=== PATIENT | male | born 1960 | race Caucasian/White ===

== ENCOUNTER 2017-02-20 01:59 | Inpatient (IN) | payer MEDICAID ==
[2017-02-20] MEDS ORDERED: NS 1,000 ML IV ONE (02:00)
[2017-02-20] MEDS ORDERED: SUCCINYLCHOLINE CHLORIDE 200 MG/10 ML VIAL IVP ONE ×2 (02:05→20:10)
[2017-02-20] MEDS ORDERED: ETOMIDATE 20 MG/10 ML VIAL IVP ONE (02:05)
[2017-02-20] MEDS ORDERED: ETOMIDATE 40 MG/20 ML INJ IVP ONE (02:10)
[2017-02-20 02:14] LABS: % IMMATURE GRANULYOCYTES 0.7 % (0.0-1.1); ABSOLUTE IMMATURE GRANULOCYTES 0.06 10^3/uL (0.00-0.10); ADD DIFF? NO; ADD MORPH? NO; ADD SCAN? NO; ATYPICAL LYMPHOCYTE FLAG 30 (0-99); FRAGMENT RBC FLAG 0 (0-99); HEMATOCRIT 49.7 % (40.0-51.0); HEMOGLOBIN 17.5 g/dL (13.7-17.5); LEFT SHIFT FLG 0 (0-99); LIPEMIA HEMOLYSIS FLAG 90 (0-99); MEAN CELL HEMOGLOBIN CONCENTR. 35.2 g/dL (32.4-36.7); MEAN CELL VOLUME 93.6 fL (81.5-99.8); MEAN PLATELET VOLUME 10.5 fL (8.7-11.7); PLATELET CLUMPS FLAG 10 (0-99); PLATELET COUNT 259 10^3/uL (150-400); RED BLOOD CELL COUNT 5.31 10^6/uL (4.40-6.38); RED CELL DISTRIBUTION WIDTH 12.7 % (11.5-15.2)
[2017-02-20] MEDS ORDERED: AMPICILLIN/SULBACTAM 3 GM in NS 100 ML IV ONE (02:17)
[2017-02-20 02:28] LABS: CARBON DIOXIDE 18 mEq/l (22-31); CHLORIDE 106 mEq/L (97-110); ETHANOL SERUM 272 mg/dL (0-10); GLOMERULAR FILTRATION RATE > 60; POTASSIUM 3.9 mEq/L (3.5-5.2)
--- NOTE | 2017-02-20 02:30 | EDPHY ---
H & P HPI/ROS: HPI: The patient presents brought in by ambulance as full trauma activation. He was at the [facility], mental health section because he was feeling suicidal. 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 He went to his car and was wrestling around for a weapon apparently. He refused to be cooperative with the police were on scene. He was taste with a Taser gun 1 time. He then vomited and fell to the ground. His head hit the ground. He had decreased responsiveness and diminished respiratory rate. In the ambulance, he was bagged and had a GCS of 4. REVIEW OF SYSTEMS Unable to obtain given patient's clinical condition PMHx: Prior ER visit in December for suicidal ideation, history of depression, hypertension, stroke, COPD TRAUMA PHYSICAL General Appearance: Obtunded, eyes closed, being bagged Head: Contusion with skin tear about 2 cm overlying mid forehead, posterior scalp laceration about 8 cm Eyes: Pupils equal, round, reactive ENT, Mouth: No hemotypanium, no oral trauma Neck: C-collar in place trachea midline Respiratory: No chest wall tenderness, no subcutaneous air, lungs clear bilaterallty Cardiovascular: Regular rate and rhythm Abdomen: Abdomen is soft and non-tender, pelvis stable Skin: As above Back: Atraumatic Extremities: No obvious external signs of trauma Neurological: GCS-7 Source: EMS, Old records Exam Limitations: Clinical condition, Physical impairment Allergies/Adverse Reactions: Unable to Assess Allergy (Verified 02/20/17 03:14) Home Medications: Medication Instructions Recorded Unobtainable 02/20/17 Medical Decision Making - Diagnostics Imaging Results: Chest x-ray one view shows ET tube 2 cm above the charissa, OG tube in stomach CT head noncontrast shows no acute intracranial injuries, discussed with Dr. Luque. CT C-spine noncontrast shows no acute fracture, discussed with Dr. Luque. CT chest abdomen pelvis performed with IV contrast shows no acute injury, discussed with Dr. Luque. Imaging: Discussed imaging studies w/ bingo caller Radiologist Procedures: INTUBATION Procedure: Rapid sequence intubation. Indication for the procedure was head trauma, airway protection. The patient was preoxygenated with 100% oxygen by face mask and then nasal cannula at 15 L. The patient was given the following IV medications: Etomidate, succinylcholine. The patient was orally endotracheally intubated under direct visualization with a 8.0 ETT. Initial attempt failed with glide scope because of copious vomiting requiring suction. In line stabilization was performed during the procedure. Tracheal intubation was confirmed with misting on the tube; breath sounds were auscultated equally bilaterally; appropriate color change with [place] Tidal CO2 detector. Chest X-ray shows ETT in good position. The procedure was performed by myself. FAST ULTRASOUND Procedure: FAST Trauma ultrasound. Limited transthoracic ultrasound was performed and interpreted by myself for the indication of: chest trauma utilizing the thoracoabdominal emergency ultrasound protocol. The pericardium was visualized and found to be negative for pericardial fluid. Limited abdominal ultrasound for blunt abdominal trauma. 1) The right upper quadrant was visualized and was found to be negative for intraperitoneal fluid. 2) The left upper quadrant was visualized and found to be negative for intraperitoneal fluid. Limited pelvic ultrasound was conducted for abdominal trauma. The bladder was visualized and did not reveal an anechoic area outside of the adjacent urinary bladder. Bladder was distended with urine. The study was felt to be negative for free intraperitoneal fluid LACERATION REPAIR Procedure: Laceration repair. Verbal consent was obtained from the patient. The linear somewhat macerated 3 cm laceration on the posterior scalp was anesthetized using lidocaine. The wound was scrubbed, draped and explored to its base with a gloved finger. There were no deep structures involved. . The wound was repaired with jovany. The wound repair was simple. The procedure was performed by myself. Differential Diagnosis: This is a 56-year-old man with history of depression, COPD, hypertension, stroke who is brought in by ambulance as full trauma activation. I met the paramedics at the bedside to obtain their report with the trauma surgeon, Dr. Rodriguez. The patient is actively vomiting, is obtained ended with low GCS and not protecting his airway, thus decision was made to intubate. He continued to vomit during intubation, he was sectioned, however sats dropped transiently to the 80s and then tube was placed without difficulty. OG tube was placed for his vomiting. [place] was placed. CT scan was obtained and demonstrated no serious acute injuries. He does appear to have possible aspiration pneumonia on CT of his chest. He has received antibiotics already for this. Labs were checked and did reveal an elevated alcohol level otherwise unremarkable. I repaired his scalp laceration. I have placed him on an M1 hold for suicidal ideation. He will be admitted to the ICU. Critical Care Time: CRITICAL CARE Critical care time spent by me, Dr Luu, exclusively with this patient was 45 minutes, exclusive of PA time and exclusive of procedures. The organ system at risk was neuro and I gave IV fluids, intubated the patient, emergently transferred to the ICU to prevent worsening of the patients condition. - Data Points Laboratory Results: Laboratory Results 02/20/17 02:08 02/20/17 02:08 02/20/17 02/20/17 02/20/17 02:08 02:08 02:08 WBC 9.19 10^3/uL 10^3/uL (3.80-9.50) RBC 5.31 10^6/uL 10^6/uL (4.40-6.38) Hgb 17.5 g/dL g/dL (13.7-17.5) Hct 49.7 % % (40.0-51.0) MCV 93.6 fL fL (81.5-99.8) MCH 33.0 pg pg (27.9-34.1) MCHC 35.2 g/dL g/dL (32.4-36.7) RDW 12.7 % % (11.5-15.2) Plt Count 259 10^3/uL 10^3/uL (150-400) MPV 10.5 fL fL (8.7-11.7) Neut % (Auto) 32.7 % L % (39.3-74.2) Lymph % (Auto) 52.0 % H % (15.0-45.0) [place] % (Auto) 9.0 % % (4.5-13.0) Eos % (Auto) 3.9 % % (0.6-7.6) Baso % (Auto) 1.7 % % (0.3-1.7) Nucleat RBC Rel Count 0.0 % % (0.0-0.2) Absolute Neuts (auto) 3.00 10^3/uL 10^3/uL (1.70-6.50) Absolute Lymphs (auto) 4.78 10^3/uL H 10^3/uL (1.00-3.00) Absolute Monos (auto) 0.83 10^3/uL H 10^3/uL (0.30-0.80) Absolute Eos (auto) 0.36 10^3/uL 10^3/uL (0.03-0.40) Absolute Basos (auto) 0.16 10^3/uL H 10^3/uL (0.02-0.10) Absolute Nucleated RBC 0.00 10^3/uL 10^3/uL (0-0.01) Immature Gran % 0.7 % % (0.0-1.1) Immature Gran # 0.06 10^3/uL 10^3/uL (0.00-0.10) D-Dimer < 0.27 ug/mLFEU ug/mLFEU (0.00-0.50) Sodium 141 mEq/L mEq/L (134-144) Potassium 3.9 mEq/L mEq/L (3.5-5.2) Chloride 106 mEq/L mEq/L (97-110) Carbon Dioxide 18 mEq/l L mEq/l (22-31) Anion Gap 17 mEq/L H mEq/L (8-16) BUN 13 mg/dL mg/dL (7-23) Creatinine 1.0 mg/dL mg/dL (0.7-1.3) Estimated GFR > 60 Glucose 117 mg/dL H mg/dL (70-100) Calcium 9.6 mg/dL mg/dL (8.5-10.4) Ethyl Alcohol 272 mg/dL H mg/dL (0-10) Medications Given: Discontinued Medications Ampicillin Sodium/Sulbactam (Sodium 3 gm/ Sodium Chloride) 100 mls @ 200 mls/ hr IV EDNOW ONE PRN Reason: Protocol Stop: 02/20/17 02:46 Last Admin: 02/20/17 02:58 Dose: 100 mls Ondansetron HCl (Zofran) 4 mg IVP EDNOW ONE Stop: 02/20/17 02:35 Last Admin: 02/20/17 02:03 Dose: 4 mg Departure - Departure Disposition: [facility] In[facility] Acute Clinical Impression: Suicidal ideation Head injury Qualifiers: Encounter type: initial encounter Qualified Code(s): S09.90XA - Unspecified injury of head, initial encounter Taser injury Qualifiers: Encounter type: initial encounter Qualified Code(s): T75.4XXA - Electrocution, initial encounter Scalp laceration Qualifiers: Encounter type: initial encounter Qualified Code(s): S01.01XA - Laceration without foreign body of scalp, initial encounter Traumatic hematoma of forehead Qualifiers: Encounter type: initial encounter Qualified Code(s): S00.83XA - Contusion of other part of head, initial encounter Altered mental status Qualifiers: Altered mental status type: coma Coma depth: [place] coma 3-8 Coma timing: in the field (EMT or ambulance) Qualified Code(s): R40.2431 - [place] coma scale score 3-8, in the field [EMT or ambulance] Alcohol intoxication Qualifiers: Complication of substance-induced condition: uncomplicated Qualified Code(s): F10.920 - Alcohol use, unspecified with intoxication, uncomplicated Condition: Critical Referrals: Rossana Stephens DO [Primary Care Provider] - As per Instructions
[2017-02-20 02:32] LABS: ANION GAP 17 mEq/L (8-16); CALCIUM 9.6 mg/dL (8.5-10.4); GLUCOSE 117 mg/dL (70-100); SODIUM 141 mEq/L (134-144)
[2017-02-20] MEDS ORDERED: ONDANSETRON 4 MG/2 ML VIAL IVP ONE (02:34)
[2017-02-20] MEDS ORDERED: PROPOFOL/EMULSION 1,000 MG/100 ML BOTTLE IV ONE (02:35)
[2017-02-20] MEDS ORDERED: VECURONIUM BROMIDE 10 MG VIAL IV ONE (02:40)
--- NOTE | 2017-02-20 03:12 | CPEKG ---
Heart Rate: 83 RR Interval: 723 P-R Interval: 172 QRSD Interval: 102 QT Interval: 396 QTC Interval: 466 P Astatula: 68 QRS Astatula: 78 T Wave Astatula: -32 EKG Severity - BORDERLINE ECG - EKG Impression: SINUS RHYTHM EKG Impression: BORDERLINE T ABNORMALITIES, INFERIOR LEADS Electronically Signed By: Roselia Slater 20-Feb-2017 22:51:57
[2017-02-20] MEDS ORDERED: ETOMIDATE 40 MG/20 ML INJ ONE (03:15)
[2017-02-20] MEDS ORDERED: SUCCINYLCHOLINE CHLORIDE*ANESTHESIA ONLY*200 MG/10 ML SYR IVP ONE (03:15)
[2017-02-20] MEDS ORDERED: VECURONIUM BROMIDE 10 MG VIAL ONE (03:15)
[2017-02-20] MEDS ORDERED: fentaNYL/NACL 100 ML IV SCH (03:25)
[2017-02-20] MEDS ORDERED: PROPOFOL/EMULSION 100 ML IV SCH (03:25)
[2017-02-20] MEDS ORDERED: LR 1,000 ML IV SCH (03:25)
[2017-02-20] MEDS ORDERED: TDAP ADULT 0.5 ML INJ (BOOSTRIX) IM ONE ×2 (03:31→03:33)
[2017-02-20 03:44] LABS: BASE EXCESS -9.5 mEq/L (-2.5-2.5); BICARBONATE 19 mEq/L (22-26); MEASURED OXYGEN SATURATION 99 % (92-95); PCO2 45 mmHg (34-38); PO2 177 mmHg (65-75); TCO2 21 mEq/L (23-27)
[2017-02-20 03:45] LABS: O2 CONCENTRATIION 100 % (0-100); P/F RATIO 177 RATIO; PATIENT RATE 14; PRESSURE SUPPORT 7; SIMV YES
[2017-02-20 03:46] LABS: PIP 23.8
[2017-02-20 05:02] LABS: BASE EXCESS -8.5 mEq/L (-2.5-2.5); BICARBONATE 20 mEq/L (22-26); MEASURED OXYGEN SATURATION 86 % (92-95); PCO2 46 mmHg (34-38); PO2 55 mmHg (65-75); TCO2 21 mEq/L (23-27)
[2017-02-20 05:03] LABS: SIMV YES
[2017-02-20 05:04] LABS: O2 CONCENTRATIION 70 % (0-100); P/F RATIO 79 RATIO; PATIENT RATE 25; PRESSURE SUPPORT 7
[2017-02-20 05:06] LABS: COLOR PALE YELLOW; LEUKOCYTE ESTERASE,URINE NEGATIVE (NEGATIVE); NITRITE,URINE NEGATIVE (NEGATIVE)
[2017-02-20 05:11] LABS: HEMOGLOBIN 17.5 g/dL (13.7-17.5); MEAN CELL HEMOGLOBIN 32.8 pg (27.9-34.1); MEAN CELL VOLUME 93.8 fL (81.5-99.8); RED BLOOD CELL COUNT 5.33 10^6/uL (4.40-6.38); RED CELL DISTRIBUTION WIDTH 12.8 % (11.5-15.2)
[2017-02-20] MEDS ORDERED: LORazepam 2 MG/ML INJ IVP PRN ×2 (05:40→06:05)
[2017-02-20] MEDS ORDERED: LORazepam 1 MG TAB PO PRN (05:40)
[2017-02-20 05:42] LABS: ANION GAP 16 mEq/L (8-16); CALCIUM 8.7 mg/dL (8.5-10.4); CARBON DIOXIDE 19 mEq/l (22-31); CHLORIDE 103 mEq/L (97-110); GLOMERULAR FILTRATION RATE > 60; GLUCOSE 129 mg/dL (70-100); SODIUM 138 mEq/L (134-144)
[2017-02-20] MEDS ORDERED: LORazepam 2 MG/ML INJ ONE (05:55)
[2017-02-20] MEDS: LORazepam 1 MG TAB PO SCH ×2 (06:11→13:23)
[2017-02-20] MEDS: LORazepam 2 MG/ML INJ IVP SCH ×2 (06:12→13:23)
[2017-02-20] MEDS ORDERED: LORazepam 2 MG/ML INJ IVP ONE (06:15)
[2017-02-20] MEDS ORDERED: LORazepam 1 MG TAB PO ONE (06:15)
[2017-02-20] MEDS ORDERED: IOPAMIDOL (ISOVUE-300) 100 ML BTL ONE (06:56)
--- NOTE | 2017-02-20 07:08 | GDS ---
[f rep st] TRANSFER SUMMARY CHIEF COMPLAINT: Ground fall. HISTORY OF PRESENT ILLNESS: Patient is an apparent 56-year-old male who approached the police stati ng he had a gun. He was shot with a Taser and hit the ground, banging the back of his head from sta nding height. He was brought to the emergency department with a C-collar in place, actively vomitin g, but otherwise unresponsive. PAST MEDICAL HISTORY: Unobtainable. ALLERGIES: Unobtainable. PHYSICAL EXAMINATION: GENERAL: Middle-aged male. HEENT: Vomitus around the mouth. C-collar in p lace. PERRL, clavicles intact. UPPER EXTREMITIES: Atraumatic. LUNGS: Clear. HEART: Normal S1, S2 without murmur. ABDOMEN: Soft, benign. PELVIS: Stable to compression. LOWER EXTREMITIES: A traumatic. Patient was log rolled onto his right side to allow clearance of his oropharynx of vomitus, and the emergency room physician was able to intubate him after several attempts, after rapid sequence induc tion. There were several episodes of vomiting which curtailed initial efforts at intubation and eac h time the patient was positioned on his side and cleared of vomitus. Eventually, endotracheal intu bation was achieved. Breath sounds were equal. A chest x-ray showed the cuff a little deep and the tube was pulled back a centimeter. A Monaco catheter was placed. The patient was then taken to CT scan. CT scans of head, neck, chest, abdomen, pelvis showed minimal abnormalities, scant amount of atelect asis and effusion right lung, but otherwise no obvious abnormalities. No typed reports are availabl e, but no verbal reports from the radiologist suggested any other significant injuries. His scalp l aceration was addressed by the emergency room physician on the occiput, stapled closed, and he was t aken to the intensive care unit and left intubated. Blood tests on admission remarkable for white b lood count of 9,000, hematocrit of 49, normal chemistries, and an alcohol of 272. Other drug screen s were negative. ASSESSMENT: Intoxicated male, threatened police, possible suicide by police attempt, with subsequen t ground fall after Taser. Only injury appears to be posterior scalp laceration. Obviously, there might be an element of concussion which could not be evaluated now. He will be extubated in the int ensive care unit when appropriate. He is also at high risk for aspiration pneumonia and I started h im empirically on Unasyn. /[id number]/MODL
[2017-02-20] MEDS ORDERED: AMPICILLIN/SULBACTAM 1.5 GM in NS 50 ML IV SCH (08:00)
--- NOTE | 2017-02-20 08:31 | TRAUMAPN ---
Assessment/Plan: no overnight issues. afebrile. BP 85, P 80's. intubated (initially), follows commands off sedation. HEENT - clean frontal and parietal abrasions/ laceration. neck collar in place. heart regular. lungs clear bilaterally. secretions thick, white. abd soft, nontender. palma - clear. ext unremarkable. Poss suicide attempt, ETOH intox, s/p TAZER and poss aspiration. Sedation DC'd, extubate. Neck cleared clinically (no tenderness to palpation - no pain with movement). No other obvious trauma injuries. Psych eval. Precedex if needed. DC palma. PT/OT/ST eval Objective: Vital Signs Temp Pulse Resp BP Pulse Ox 36.5 C 87 27 H 85/48 L 99 02/20/17 06:00 02/20/17 06:00 02/20/17 06:00 02/20/17 06:00 02/20/17 06:00 Laboratory Results 02/20/17 05:00 02/20/17 05:00 02/19/17 02/20/17 02/21/17 05:59 05:59 05:59 Intake Total 2360 Output Total 1038 Balance -7386
[2017-02-20] MEDS ORDERED: DEXMEDETOMIDINE HCL 400 MCG in NS 100 ML IV SCH (09:00)
[2017-02-20 11:38] LABS: ETHANOL SERUM 48 mg/dL (0-10)
--- NOTE | 2017-02-21 08:56 | TRAUMAPN ---
Assessment/Plan: 56-year-old male status post suicide attempt, tasered Pain controlled, patient is really stiff and it is hard for him to readjust and get out of bed but is making progress, appears better today Met with mental health yesterday, it is sided against signing contract for safety, discussed with him again today its benefits, will readdress but anticipate that he will sign a contract for safety No new medical issues identified Subjective: In better spirits today Objective: Vital Signs Temp Pulse Resp BP Pulse Ox 36.8 C 90 24 H 102/87 H 92 02/20/17 20:00 02/21/17 06:00 02/21/17 06:00 02/21/17 06:00 02/21/17 06:00 Laboratory Results 02/20/17 05:00 02/20/17 05:00 02/20/17 02/21/17 02/22/17 05:59 05:59 05:59 Intake Total 2360 3095 Output Total 7690 2813 [facility] [phone]
[2017-02-21] MEDS ORDERED: oxyCODONE IR 5 MG TAB PO PRN (09:23)
[2017-02-21] MEDS: IBUPROFEN 600 MG TAB PO PRN ×2 (09:44→15:08)
[2017-02-21] MEDS: ALBUTEROL 3 ML DEYVIAL IH PRN ×2 (09:44→15:08)
[2017-02-21 11:43] LABS: HEMATOCRIT 50.4 % (40.0-51.0); HEMOGLOBIN 17.7 g/dL (13.7-17.5); MEAN CELL HEMOGLOBIN CONCENTR. 35.1 g/dL (32.4-36.7); MEAN CELL VOLUME 93.9 fL (81.5-99.8); RED BLOOD CELL COUNT 5.37 10^6/uL (4.40-6.38); RED CELL DISTRIBUTION WIDTH 13.1 % (11.5-15.2)
--- NOTE | 2017-02-21 16:36 | GCON ---
[f rep st] CONSULTATION PULMONARY/CRITICAL CARE CONSULTATION DATE OF CONSULTATION: 02/21/2017 REFERRING PHYSICIAN: Juan Antonio Hastings MD REASON FOR CONSULTATION: Evaluation and management of hypoxemia and pulmonary infiltrates. HISTORY: The patient is a 56-year-old gentleman who was at the [facility] in the [facility] because he was feeling suicidal. 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 He was apparently wrestling around with a weapon and refused to be cooperative when police were on the scene. He was tased once. He had vomiting and fell to the ground and hit his head. He had de creased responsiveness and diminished breathing at the time he was brought in. Because of this, he was intubated for airway protection. He was extubated later that day uneventfully. He now complain s of feeling tired/weak, as well as feeling sore all over, which he attributes to being tased. He s ays it hurts to take a full breath, with a feeling of discomfort across his midsection. He denies a ny cough and has not had any other recent respiratory symptoms. PAST MEDICAL HISTORY: 1. Depression. 2. Hypertension. 3. COPD. 4. Stroke. MEDICATIONS: Amlodipine, Neurontin, Flexeril, Zestril, Valium, Zoloft, Proventil and Lopressor. ALLERGIES: None. SOCIAL HISTORY: He is a current smoker. FAMILY HISTORY: Unremarkable. REVIEW OF SYSTEMS: A 10-point review of systems adds nothing to the history of present illness. PHYSICAL EXAMINATION: GENERAL: The patient is awake, alert, and in no acute distress. VITAL SIGNS : Blood pressure is 93/71 with a heart rate of 90s. Afebrile. Oxygen saturations are 88% on 2 L. HEENT: Normocephalic. He has a laceration on his forehead that has been repaired. No icterus. N [place]: No JVD. Trachea is midline. CHEST: Clear to auscultation. CARDIAC: Regular rate and rhyth m without murmur. ABDOMEN: Soft, nontender. Bowel sounds are present. EXTREMITIES: No clubbing, cyanosis, or edema. LABORATORY: White blood count of 16.0, hemoglobin is 17.7. Chemistry group shows a BUN of 13 with a creatinine of 1.0, a glucose is 129. Arterial blood gas yesterday showed a pH of 7.24 with a pO2 of 55, pCO2 of 46 and a bicarbonate of 21 on 70% oxygen with an IMV rate of 14 and tidal volume of [address] shows some minimal ground-glass opacities bilaterally, as well as some posterior atelectasi s. Images reviewed. A chest x-ray today shows some hypoventilation with atelectasis/mild infiltrates. Images reviewed. ASSESSMENT: 1. Hypoxemia and pulmonary infiltrates. This is most likely due primarily to atelectasis. It is c ertainly possible that he aspirated, but this does not appear to have been a large enough volume to cause significant consolidation/dense infiltrates. I do not think it warrants antibiotics at this p oint. He has an elevated white blood count, but does not have any fever. 2. Suicidal ideation. The patient refused to sign a contract, so he is being kept here on an M1 ho ld. 3. History of smoking and possible chronic obstructive pulmonary disease. RECOMMENDATIONS: 1. Continue to hold antibiotics. 2. Incentive spirometry and increase activity as tolerated. 3. If the patient develops fever and/or his white blood count continues to increase, chest x-ray an d consider antibiotics at that point. 4. Continue albuterol on a p.r.n. basis. /[id number]/MODL
[2017-02-21] MEDS ORDERED: GABAPENTIN 300 MG CAP PO PRN (20:22)
[2017-02-21] MEDS ORDERED: CYCLOBENZAPRINE 10 MG TAB PO PRN (20:22)
[2017-02-21] MEDS: NICOTINE 21 MG/24 HR PATCH TD SCH (20:59)
[2017-02-21] MEDS: DIAZEPAM 5 MG TAB PO PRN (20:59)
[2017-02-21] MEDS: SERTRALINE HCL 50 MG TAB PO SCH (21:00)
[2017-02-22] MEDS: IBUPROFEN 600 MG TAB PO PRN ×2 (00:35→11:08)
[2017-02-22] MEDS: ALBUTEROL 200 PUFFS/18 GM MDI IH PRN ×2 (09:30→20:39)
[2017-02-22] MEDS: METOPROLOL TARTRATE 25 MG TAB PO SCH (11:08)
[2017-02-22] MEDS: NICOTINE 21 MG/24 HR PATCH TD SCH (11:08)
[2017-02-22] MEDS: LISINOPRIL 20 MG TAB PO SCH (11:09)
--- NOTE | 2017-02-22 12:59 | PDINTPN ---
Insulation Board Back Tender Progress Note Assessment/Plan: Assessment: Suicide ideation: On M1 hold. History of depression Acute bronchitis. COPD. Ongoing tobacco abuse Hypoxemia, secondary to 2 and 3 Hypertension. Blood pressure is well controlled GI prophylaxis: None indicated, eating. DVT prophylaxis: None. Will add. Plan: Continue care in the intensive care unit. Continue M1 hold. Will add scheduled duo nebs, Zithromax, and prednisone for acute bronchitis and exacerbation of his COPD. Will add IS. Continue other medications. See orders. 35 minutes of critical care time spent directly with the patient. Discussed issues with the patient, nursing, and the ICU multi disciplinary team. Subjective: Remains depressed, despondent. Has cough and pulmonary congestion, not usual for him unless he is sick. He has smoked 1 pack of cigarettes per day for many years. Objective: Vital Signs Temp Pulse Resp BP Pulse Ox 36.8 C 82 16 119/71 88 L 02/22/17 04:00 02/22/17 12:00 02/22/17 12:00 02/22/17 12:00 02/22/17 12:00 Laboratory Results 02/21/17 11:35 02/20/17 05:00 02/21/17 02/22/17 02/23/17 05:59 05:59 05:59 Intake Total 3095 700 Output Total 4400 550 Balance -1305 150 CXR: Bibasilar atelectasis or infiltrates are present. Physical Exam - Physical Exam General Appearance: other (Sleeping, arousable, responsive, appropriate) EENT: PERRL/EOMI, other (Nasal cannula at 1-2 L), No normal ENT inspection ( Abrasion on forehead) Neck: normal inspection Respiratory: rales (Few rales at the posterior bases), wheezing, No lungs clear , No respiratory distress, No rhonchi (Pulmonary congestion present centrally with exhalation, scattered.) Cardiac/Chest: regular rate, rhythm Abdomen: normal bowel sounds, non-tender, soft Skin: normal color, warm/dry Extremities: No pedal edema Neuro/Psych: no motor/sensory deficits, No cognition abnormalities ICD10 Worksheet Patient Problems: Problems Problem Status Onset Head injury Acute Taser injury Acute Scalp laceration Acute Traumatic hematoma of forehead Acute Altered mental status Acute Alcohol intoxication Acute Suicidal ideation Acute
[2017-02-22] MEDS ORDERED: IPRATROPIUM/ALBUTEROL 3 ML DEYVIAL ONE (13:33)
[2017-02-22] MEDS: ENOXAPARIN 40 MG/0.4 ML SYR SC SCH (13:36)
[2017-02-22] MEDS: AZITHROMYCIN 250 MG TAB PO SCH (13:36)
[2017-02-22] MEDS: predniSONE 20 MG TAB PO SCH (13:36)
[2017-02-22] MEDS: IPRATROPIUM/ALBUTEROL 3 ML DEYVIAL IH SCH ×2 (13:38→21:02)
--- NOTE | 2017-02-22 17:28 | TRAUMAPN ---
Assessment/Plan: 56 Y M appears to be suicide attempt by copy worker, s/p tasering, continued suicidal ideation. Posterior head lac. M1 hold. +tobacco. Seen and examined with Dr. Mcclure and discussed on interdisciplinary rounds. Still with O2 needs--possibly chronic? Awaiting placement by [facility]. This potentially delayed due to O2 needs. Medical Imaging Director/finance clerk following. S: "hurts all over, probably bc of the tasing" O: alert, nad pupils equal +forehead abrasion vs burn no wob rrr abd soft ext wwp, nt Objective: Vital Signs Temp Pulse Resp BP Pulse Ox 36.8 C 89 22 H 111/85 H 87 L 02/22/17 04:00 02/22/17 16:00 02/22/17 16:00 02/22/17 16:00 02/22/17 16:00 Laboratory Results 02/21/17 11:35 02/20/17 05:00 02/21/17 02/22/17 02/23/17 05:59 05:59 05:59 Intake Total 3095 700 Output Total 4400 550 Balance -1305 150
[2017-02-22] MEDS: DIAZEPAM 5 MG TAB PO PRN (20:37)
[2017-02-22] MEDS: SERTRALINE HCL 50 MG TAB PO SCH (20:37)
[2017-02-23] MEDS: IPRATROPIUM/ALBUTEROL 3 ML DEYVIAL IH SCH ×4 (06:07→21:00)
[2017-02-23] MEDS: ENOXAPARIN 40 MG/0.4 ML SYR SC SCH (08:21)
[2017-02-23] MEDS: AZITHROMYCIN 250 MG TAB PO SCH (08:21)
[2017-02-23] MEDS: NICOTINE 21 MG/24 HR PATCH TD SCH (08:22)
[2017-02-23] MEDS: predniSONE 20 MG TAB PO SCH (08:22)
[2017-02-23] MEDS: METOPROLOL TARTRATE 25 MG TAB PO SCH (08:47)
[2017-02-23] MEDS: LISINOPRIL 20 MG TAB PO SCH (08:47)
--- NOTE | 2017-02-23 09:06 | SOAPPROG ---
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 Suicide ideation continues. No overall trauma problems Being treated for bronchitis Tolerating diet No overall complaints Regular rate and rhythm Clear to auscultation Abdomen soft nontender Moving all extremities Pulses intact No neurologic deficits focal or global Will discuss with intensive care and Medicine regarding trauma signing off. M1 expires this morning will need to reinstate this for psychiatric hold. 02/23/17 09:04 Objective: Vital Signs Temp Pulse Resp BP Pulse Ox 36.6 C 81 26 H 122/54 H 93 02/23/17 08:00 02/23/17 08:00 02/23/17 08:00 02/23/17 08:00 02/23/17 08:00 Laboratory Results 02/21/17 11:35 02/20/17 05:00 02/22/17 02/23/17 02/24/17 05:59 05:59 05:59 Intake Total 700 1500 Output Total 550 Balance 150 1500 ICD10 Worksheet Patient Problems: Problems Problem Status Onset Alcohol intoxication Acute Altered mental status Acute Head injury Acute Scalp laceration Acute Suicidal ideation Acute Taser injury Acute Traumatic hematoma of forehead Acute
[2017-02-23] MEDS ORDERED: SENNOSIDES/DOCUSATE SODIUM TAB PO PRN (12:09)
--- NOTE | 2017-02-23 12:09 | PDINTPN ---
Over Hauler Helper Progress Note Assessment/Plan: Assessment: Suicide ideation: M1 hold this morning. Still suicidal secondary to situational issues. History of depression Acute bronchitis. On azithromycin, steroids and bronchodilators. Resolving COPD. Ongoing tobacco abuse. Underlying COPD is probably mild? Hypoxemia: Resolved Hypertension. Blood pressure is well controlled on metoprolol, lisinopril, and amlodipine. GI prophylaxis: None indicated, eating. DVT prophylaxis: None. Will add. Medically cleared this a.m.. Plan: Patient is medically clear at this time in can be evaluated by Psychiatry /[facility]. Inpatient psychiatric placement would seem to be indicated. He can be discharged on his usual antihypertensive medications, plus Zithromax to complete a 5 day course, albuterol by metered-dose inhaler, and prednisone taper. He will not need oxygen at this point. 30 minutes of critical care time spent directly with the patient. Discussed issues with the patient, nursing, and the ICU multi disciplinary team. Subjective: Breathing better today, less short of breath. Still with some congestion. On room air. Still quite despondent, indicates that he would be suicidal if he remains homeless, without work, etc Objective: Vital Signs Temp Pulse Resp BP Pulse Ox 36.6 C 85 12 139/79 H 97 02/23/17 08:00 02/23/17 11:23 02/23/17 11:23 02/23/17 10:00 02/23/17 11:23 Laboratory Results 02/21/17 11:35 02/20/17 05:00 02/22/17 02/23/17 02/24/17 05:59 05:59 05:59 Intake Total 700 1500 Output Total 550 Balance 150 1500 Physical Exam - Physical Exam General Appearance: alert, no apparent distress EENT: PERRL/EOMI, other (On room air) Neck: normal inspection (No JVD) Respiratory: lungs clear (With passive breathing), wheezing (With forced expiratory efforts), prolonged expiration (Mild), No respiratory distress, No accessory muscle use, No rhonchi (But some congestion with cough) Cardiac/Chest: regular rate, rhythm Abdomen: normal bowel sounds, non-tender, soft Male Genitalia: other Skin: normal color, warm/dry Extremities: No pedal edema Neuro/Psych: no motor/sensory deficits (Moves all extremities equally, gross motor function intact), No cognition abnormalities ICD10 Worksheet Patient Problems: Problems Problem Status Onset Head injury Acute Taser injury Acute Scalp laceration Acute Traumatic hematoma of forehead Acute Altered mental status Acute Alcohol intoxication Acute Suicidal ideation Acute
[2017-02-23] MEDS: DIAZEPAM 5 MG TAB PO PRN ×2 (15:00→21:11)
[2017-02-23] MEDS: SERTRALINE HCL 50 MG TAB PO SCH (21:11)
[2017-02-24 00:25] LABS: BILIRUBIN,TOTAL 0.7 mg/dL (0.1-1.4); BILIRUBIN-CONJUGATED 0.5 mg/dL (0.0-0.5); BILIRUBIN-UNCONJUGATED 0.2 mg/dL (0.0-1.1); TOTAL PROTEIN 6.8 g/dL (6.3-8.2)
[2017-02-24 03:52] VITALS: BP 126/88; PULSE 77; RESP 16; TEMP 97.9; O2SAT 94
[2017-02-25] MEDS ORDERED: LORazepam 1 MG TAB PO SCH (09:00)
[2017-02-25] MEDS ORDERED: LORazepam 2 MG/ML INJ IVP SCH (09:00)
== END 2017-02-24 04:02 | DRG 880 ==
LOC: EDBD 01:59 → EEVIPCON 02:57 → F2N 03:44
PROVIDERS: ADMIT Surgery; ATTEND Surgery
PROC: 0HQ0XZZ Repair Scalp Skin, External Approach (ICD-10-PCS; principal; 2017-02-20)
DX: R45.851 Suicidal ideations (principal); F32.9 Major depressive disorder, single episode, unspecified; S01.01XA Laceration without foreign body of scalp, initial encounter; Y35.893A Legal intervention involving other specified means, suspect injured, initial encounter; W19.XXXA Unspecified fall, initial encounter; J20.9 Acute bronchitis, unspecified; F10.129 Alcohol abuse with intoxication, unspecified; R40.2430 Glasgow coma scale score 3-8, unspecified time; J44.9 Chronic obstructive pulmonary disease, unspecified; I10 Essential (primary) hypertension; Z86.73 Personal history of transient ischemic attack (TIA), and cerebral infarction without residual deficits
CPT/HCPCS: 80305; 92507-GN; 92523-GN; 92610-GN; 96365; 97165-GO; 97535-GO; G0480; J0295; J0330; J1650; J2060; J2405; J2704; J3010; Q9967